=== PATIENT | female | born 1955 | race Caucasian/White ===

== ENCOUNTER 2024-02-18 13:19 | Outpatient (RCR) | payer OTHER | END 2024-03-07 | LOC: PT 13:19 | PROVIDERS: ATTEND Physician Assistant | DX: M46.1 Sacroiliitis, not elsewhere classified (principal); M53.3 Sacrococcygeal disorders, not elsewhere classified; S29.012D Strain of muscle and tendon of back wall of thorax, subsequent encounter; M62.81 Muscle weakness (generalized) ==

== ENCOUNTER → 2024-11-17 | Outpatient (REF) | payer MEDICARE | LOC: US 10:25 | PROVIDERS: ATTEND Internal Medicine Nephrology | DX: N18.2 Chronic kidney disease, stage 2 (mild) (principal) | CPT/HCPCS: 76770; 76857 ==